=== PATIENT | male | born 1950 | race Caucasian/White ===

== ENCOUNTER → 2020-07-29 11:34 | Outpatient (CLI) | payer MEDICARE, SELFPAY ==
[2020-07-29 09:58] VITALS: BMI 21.6
[2020-07-29 12:29] LABS: Absolute Lymphocyte Count 1.28 X10^3/uL (0.83-4.51); Absolute Neutrophil Count 3.8 X10^3/uL (2.0-7.7); Basophil# 0.04 X10^3/uL; Basophil% 0.7 % (0-1); Eosinophil# 0.24 X10^3/uL; Hematocrit 45.8 % (40-54); Lymphocyte # 1.28 X10^3/ul (0.83-4.51); Lymphocyte % 21.4 % (19-41); Mean Corp Hgb Conc 32.8 g/dL (32-36); Mean Corpuscular Hgb 30.2 pg (27.0-32.0); Mean Corpuscular Volume 92.3 fL (80-94); Mean Platelet Vol. 9.9 fl (6.2-12.0); Monocyte# 0.55 X10^3/uL; Monocyte% 9.2 % (0-10); NRBC Flagged by Analyzer 0 % (0-5); Neutrophil # 3.82 X10^3/uL (2.7-7.7); Platelet Count 210 K/mm3 (150-450); RBC Distribution Width CV 12.8 % (11.6-14.6); RBC Distribution Width SD 43.5 fl (35.1-43.9); Red Blood Count 4.96 M/mm3 (4.6-6.2)
[2020-07-29 13:12] LABS: Vitamin D,25 Hydroxy 14.3 ng/mL
[2020-07-29 13:32] LABS: ALB/GLOB Ratio 0.9 RATIO (0.9-2.4); AST(SGOT) 17 U/L (15-37); Alanine Aminotransfer ALT/SGPT 26 U/L (16-61); Albumin, Serum 3.7 g/dL (3.2-5.0); Alkaline Phosphatase 121 U/L (45-117); Anion Gap 3 (5-15); BUN 12 mg/dL (7-18); BUN/Creat Ratio 14.7 RATIO (10-20); Chloride 105 mmol/L (98-107); Cholesterol 201 mg/dL (200); Creatinine, Serum 0.82 mg/dL (0.70-1.30); EST Glomerular Filtration Rate 99 mL/min (>60); Est Glom Filt Rate - Afr Amer 120 mL/min (>60); Globulin 3.9 g/dL (2.2-4.2); Glucose 101 mg/dL (74-106); High Density Lipoprotein 38 mg/dL; PSA,Total - Annual Screen 4.41 ng/mL (0.00-4.00); Potassium 5.1 mmol/L (3.5-5.1); Protein, Total 7.6 g/dL (6.4-8.2); Sodium Level 137 mmol/L (136-145); Triglycerides 151 mg/dL; Very Low Density Lipoprotein 30 mg/dL (5-40)
== END ==
PROVIDERS: PCP Internal Medicine; Referring Provider Internal Medicine; Visit Provider Internal Medicine
DX: E55.9 Vitamin D deficiency, unspecified (principal); R22.1 Localized swelling, mass and lump, neck; E07.9 Disorder of thyroid, unspecified; N40.0 Benign prostatic hyperplasia without lower urinary tract symptoms; E78.5 Hyperlipidemia, unspecified
CPT/HCPCS: 36415; 80053; 80061; 82306; 84153; 84443; 85025; G0103

== ENCOUNTER → 2020-08-06 | Outpatient (CLI) | payer MEDICARE, SELFPAY ==
[2020-07-29 09:58] VITALS: BMI 21.6
--- NOTE | 2020-08-05 | IMM_PTH ---
PATIENT: DONNY TAVERAS LOC: [facility] U#:[id number] AGE/SX: 69/M ROOM: RE08/06/[address]: Dr. Lyndon Perales MD : 1950 BED: DIS: 08/06/2020 SPEC #: [id number] RECD: 08/07/20 11:51 STATUS: ROD REQ #: [id number] ESTEVAN: 08/05/20 00:[address]: Lyndon Perales DEPT: IMMUNOHISTOCHEMISTRY RECD BY: Terri Roche ENTERED: 08/07/20 11:54 SP TYPE: IMMUNO OTHR DR: Dr. Eda Bazan MD Tissues: A - Neck, NOS Procedures: CD45 (add) CK14 (add) CK20 (add) CK5-6 (add) CK7 (add) MERYL (add) MACRO (add) MPO (add) P16 (add) P53 (add) Pankeratin (initial) P40 (add) PHYSICIAN & INSTITUTION [place] [id number] SPECIMEN INFORMATION: Tissue Source: A ? Right neck mass Clinical Info: Right neck mass Specimen Number: [id number] CPT code: 88264, 11789 x11 METHODOLOGY: Deparaffinized sections of prefer/formalin-fixed tissue or PAP/DQ stained slides are incubated with monoclonal/polyclonal antibodies/oligonucleotide probes. Localization is made via biotin free immunoperoxidase method. Appropriate controls are performed and reacted as expected. Results on target cell population are indicated in the following table: RESULTS: ANTIBODY / CLONE RESULT Block A AE1-3 (AE1/AE3/PCK26) positive CK7 (OV-TL12/30) negative CK20 (KS20.8) negative CD45 (RP2/18) negative MPO (polyclonal) negative Macro (HAM-56) negative CK5-6 (D5 & 1684) positive P40 (BC28) positive, dim MERYL (E29) positive P53 (DO-7) negative P16 (E6H4) positive, occasional cells CK14 (LL002) positive These tests were developed and their performance characteristics determined by [facility]. They may not have been cleared or approved by the [place]. Food and Drug Administration. The FDA has determined that such clearance or approval is not necessary. The above immunohistochemical/dualISH markers are ordered and reviewed by the Pathologist. INTERPRETATION: A. 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 AM:jennifer 08/12/2020
--- NOTE | 2020-08-05 13:40 | FLU_PTH ---
PATIENT: DONNY TAVERAS LOC: [facility] U#:[id number] AGE/SX: 69/M ROOM: RE08/06/[address]: Dr. Lyndon Perales MD : 1950 BED: DIS: 08/06/2020 SPEC #: [id number] RECD: 08/06/20 12:02 STATUS: ROD ZAC #: [id number] ESTEVAN: 08/05/20 13:[address]: Lyndon Perales DEPT: CYTOLOGY RECD BY: Lisset Anna ENTERED: 08/06/20 12:59 SP TYPE: Fluid OTHR DR: Dr. Eda Bazan MD Tissues: Neck, NOS Procedures: Special Stain Group II Surgery Specimen Level IV Cytospin Fluid HEADER OPERATION: Ultrasound-guided fine needle aspiration right neck mass PRE-OP DIAGNOSIS: Right neck mass TISSUE SUBMITTED: A ? Right neck mass fluid for cytology, B - Right neck mass slides x8 DIAGNOSIS CYTOLOGY A. Fine needle aspiration, right neck mass, fluid for cytology (cytospin): Consistent with cystic squamous cell carcinoma. See comment. B. Fine needle aspiration, right neck mass (smears): Consistent with cystic squamous cell carcinoma. AM:jennifer 08/07/2020 COMMENT A. Immunohistochemistry ([id number]) supports the above diagnosis. Case has been reviewed in consultation with Dr. Perez who concurs with the above diagnosis. IDC:[facility] CYTOLOGY STUDY Slides are reviewed. CYTOLOGY GROSS A - Received is 30 ml of brown cloudy fluid labeled with the patient's name and and designated per the requisition as right neck mass. Submitted for cytology preparation including cell block. B - Received are eight smears labeled with the patient's name and designated per the requisition as right neck mass. Submitted for staining. / jennifer 08/06/2020 TC:0 CPT: 66045, 37076, 17664
== END | disposition home or self-care (01) ==
LOC: LABSPEC 12:24
PROVIDERS: PCP Internal Medicine; Referring Provider Surgery; Visit Provider Surgery
DX: R22.1 Localized swelling, mass and lump, neck (principal)
CPT/HCPCS: 88108; 88305; 88313; 88341; 88342

== ENCOUNTER → 2020-08-12 12:01 | Outpatient (CLI) | payer MEDICARE, SELFPAY ==
[2020-07-29 09:58] VITALS: BMI 21.6
--- NOTE | 2020-08-12 12:04 | CT_ITS ---
STUDY: CT SOFT TISSUE NECK WITH CONTRAST REASON FOR EXAM: Male, 69 years old. Right sided cervical mass. RADIATION DOSAGE (If Supplied By Facility): CTDIvol = ( 13.56 ) mGy, DLP = ( 382.92 ) mGycm TECHNIQUE: The patient was scanned in a multi-detector CT scanner. High resolution transaxial imaging was performed following intravenous administration of IV 100mL Isovue-300. Sagittal and coronal images were reconstructed. Individualized dose optimization techniques were used for this CT. COMPARISON: None. FINDINGS: Normal bilateral parotid glands. Normal bilateral dewaterer operator spaces. Normal bilateral parapharyngeal spaces. Normal bilateral carotid spaces. Normal bilateral sublingual and submandibular glands and spaces. Normal visualized nasopharynx. Normal retropharyngeal space. Normal perivertebral space. Normal visualized bilateral faucial tonsils. The visualized tongue, tongue base and oropharynx are normal. The palpable mass corresponds to a 4.2 cm x 3.6 cm x 4.9 cm complex solid and cystic mass in the right posterior cervical triangle of the neck. These most likely represent enlarged necrotic lymph nodes. Biopsy is recommended for further evaluation. Normal epiglottis, bilateral vallecula and hypopharynx. The pre-epiglottic and paraglottic adipose spaces are normal. Normal visualized bilateral piriform sinuses, aryepiglottic folds, vocal cords, and arytenoid-cricoid articulations. Normal subglottic trachea. Normal bilateral lobes of the thyroid gland. There is evidence of a 3 cm x 2.1 cm soft tissue density in the right lung apex with evidence of bronchiectasis. There is also evidence of irregular soft tissue density in the posterior medial aspect of the left lung apex measuring 1.2 cm x 2.2 cm. These most likely represent scarring although correlation with a PET scan is recommended for further There is a 1.8 cm x 2.2 cm polyp or retention cyst at the base of the right maxillary sinus. There is multilevel degenerative changes of the cervical spine. CT/Soft Tissue Neck WITH Contrast IMPRESSION: The palpable mass in the right cervical region corresponds to a 4.2 cm x 3.69 x 4.9 cm complex solid and cystic mass in the posterior triangle of the right-sided neck. Biopsy is recommended for further evaluation. Electronically Signed: Jae Caldwell MD at 14:12 EDT , Service support ,
== END ==
PROVIDERS: PCP Internal Medicine; Referring Provider Internal Medicine; Visit Provider Internal Medicine
DX: R22.1 Localized swelling, mass and lump, neck (principal)
CPT/HCPCS: 70491; Q9967